=== PATIENT | male | born 1985 | race African-American/Black ===

== ENCOUNTER 2016-09-07 03:53 | Emergency (ER) | payer OTHER ==
[2016-09-07] MEDS ORDERED: NO MEDICATIONS (04:06)
== END 2016-09-07 04:43 | disposition home or self-care (01) ==
LOC: SED 03:53
DX: S01.112A Laceration without foreign body of left eyelid and periocular area, initial encounter (principal); W22.03XA Walked into furniture, initial encounter; Y92.69 Other specified industrial and construction area as the place of occurrence of the external cause; Y99.0 Civilian activity done for income or pay
CPT/HCPCS: 12011; 99283

== ENCOUNTER 2016-09-18 20:59 | Emergency (ER) | payer OTHER ==
--- NOTE | ~2016-09-18 | CR63 ---
[facility] A Service of [facility] RADIOLOGY TEXT RESULTS PATIENT: JACEK HUGHES LOCATION: SED : 85 UNIT #: [id number] AGE: [address]: CHRISTOPHER GONZALEZ SEX: M ORDER DR: [id number] [place] [id number] E MR#: [id number] Acc #: [id number] NAME: JACEK HUGHES : 1985 SEX: M STUDY DATE/TIME: 09/18/2016 22:16 UNIT: SED ROOM: STUDY DESCRIPTION: CR Chest 2 View Attending Physician: Christopher Gonzalez Ordering Physician: Physician Non-Staff Primary Care Physician: Tosha Waite A.P.R.N. MEDICAL IMAGING REPORT This report is preliminary unless electronic signature is present. EXAM Two-view chest INDICATION Cough for the past week. PROCEDURE Frontal and lateral views of the chest. COMPARISON 08/22/2011 FINDINGS Mild cardiomegaly. There is ill-defined opacity in the right mid lung. No pleural fluid. No pneumothorax. IMPRESSION 1. Ill-defined opacity in the right mid lung probably superior segment right lower lobe. 2. Tnbo-xq-dmfplhtj cardiomegaly. Dictated by... Raza Cintron M.D. THIS IS AN ELECTRONICALLY VERIFIED REPORT Raza Cintron M.D. at 09/23/2016 7:25 AM JANEY/tc TD: 09/19/2016 09:23 JOB #: [id number] MEDICAL IMAGING REPORT [facility] A Service [facility] RADIOLOGY TEXT RESULTS PATIENT: JACEK HUGHES LOCATION: SED : 85 UNIT #: [id number] AGE: [address]: CHRISTOPHER GONZALEZ SEX: M ORDER DR: Page 1 of 1
[~2016-09-18 20:59] MED LIST: NO MEDICATIONS
== END 2016-09-19 00:03 | disposition home or self-care (01) ==
LOC: SED 20:59
DX: J18.9 Pneumonia, unspecified organism (principal)
CPT/HCPCS: 71020; 94640; 99283